=== PATIENT | female | born 1980 | race Caucasian/White ===

== ENCOUNTER 2021-01-13 11:11 | Emergency (ER) | payer OTHER, SELFPAY ==
--- NOTE | ~2021-01-13 | US_ITS ---
EXAMINATION: US OB <= 14 weeks fetus DATE: 01/13/2021 12:28 INDICATION: Vaginal bleeding during first trimester TECHNIQUE: Real-time pelvic transabdominal and transvaginal ultrasound was performed. COMPARISON: None. FINDINGS: The uterus measures 15.3 x 9.3 x 7.6 cm. There is an intrauterine gestational sac. There i s a 1.5 cm hypoechoic area adjacent to the gestational sac. heart motion is identified measurin g 175 beats per minute (bpm) by M-mode Doppler. The crown rump length measures 5.1 cm , which c orrelates with an estimated gestational age of 11 weeks and 6 day(s) (+/-) 7 day(s). The left ovary is not visualized however no left adnexal abnormality is seen. The right ovary measure s 1.9 x 1.7 x 2.2 cm. There is normal vascular flow in the right ovary. There is no free fluid in the pelvis. IMPRESSION: 1. Live intrauterine with an estimated gestational age of 11 weeks and 6 day(s) (+/-) 7 day (s) and an estimated delivery date of 07/29/2021. 2. Small subchronic hematoma. Reviewed, dictated and finalized at location A. IMPRESSION: 1. Live intrauterine with an estimated gestational age of 11 weeks an d 6 day(s) (+/-) 7 day(s) and an estimated delivery date of 07/29/2021. 2. Small subchronic hematoma.
[2021-01-13 11:15] VITALS: BP 106/67; PULSE 90; RESP 20; TEMP 36.8; O2SAT 99
[2021-01-13] MEDS: SODIUM CHLORIDE 0.9% IV 1,000 ML 999 ML IV CONT (12:11)
[2021-01-13 12:15] LABS: Basophils Absolute Auto 0.1 K/mm3 (0.0-0.1); Basophils Percent Auto 0.7 % (0.2-1.2); Eosinophils Absolute Auto 0.3 K/mm3 (0-0.3); Eosinophils Percent Auto 2.1 % (0-4.4); Hematocrit 36.2 % (37.0-47.0); Hemoglobin 12.2 g/dL (12.0-15.0); Immature Granulocyte Absolute 0.11 K/mm3 (0.00-0.031); Immature Granulocyte Percent A 0.8 % (0-0.5); Lymphocytes Absolute Auto 3.41 K/mm3 (0.9-3.2); Mean Corpuscular HGB Conc 33.7 g/dl (32-36); Mean Corpuscular Hemoglobin 31.4 pg (26-34); Mean Corpuscular Volume 93.3 fl (80-100); Mean Platelet Volume 8.4 fl (7.4-10.4); Monocytes Absolute Auto 0.9 K/mm3 (0.1-0.6); Monocytes Percent Auto 6.7 % (2.6-8.5); Neutrophils Absolute Auto 8.4 K/mm3 (1.3-6.7); Neutrophils Percent Auto 63.7 % (45.5-73.1); Platelet Count Result 348 k/mm3 (150-375); Red Blood Count 3.88 M/mm3 (4.2-5.4); White Blood Count 13.1 K/mm3 (4.5-10.0)
[2021-01-13 12:25] LABS: Alanine Aminotransferase 17 U/L (4-35); Albumin Level 3.8 g/dL (3.5-5.1); Alkaline Phosphatase 54 U/L (38-126); Anion Gap 9 mmol/L (8-16); Aspartate Amino Transferase 29 U/L (14-36); Bilirubin,Total 0.3 mg/dL (0.2-1.3); Blood Urea Nitrogen 10 mg/dL (7-17); Calcium 9.1 mg/dL (8.4-10.2); Carbon Dioxide 23 mmol/L (22-30); Chloride 104 mmol/L (98-107); Estimated CRCL calculation 81 ml/min; Estimated Glomerular Filt Rate > 60; Glucose 107 mg/dL (65-105); Potassium 3.3 mmol/L (3.4-5.0); Sodium 136 mmol/L (137-145)
[2021-01-13 13:22] LABS: Add Urine Microscopic? YES; Appearance Urine Clear (Clear); Bilirubin Urine Negative (Negative); Blood Urine 1+ (Negative); Color Urine Straw (Yellow); Glucose Urine UA 2+ mg/dL (Negative); Ketones Urine Negative (Negative); Leukocyte Esterase Ur Negative LEU/UL (Negative); Nitrate Urine Negative (Negative); Protein Urine Negative (Negative); RBC Urine 0-2 /hpf (0-2); Specific Grav Ur 1.011 (1.001-1.035); Squamous Epithelial Cell Urine Rare /hpf (Few); Urobilinogen Urine Negative mg/dL (<2.0); WBC Urine 0-3 /hpf
--- NOTE | 2021-01-13 13:29 | ED.GENADULT ---
HPI - General Adult General Chief complaint: Vaginal Bleeding Stated complaint: 12 weeks , spotting Time Seen by Provider: 01/13/21 11:50 Source: patient, family, RN notes reviewed and old records reviewed Mode of arrival: ambulatory Limitations: no limitations History of Present Illness HPI narrative: Patient is a 40-year-old female who presents with spotting after noting that she was doing a lot of walking yesterday patient has some low back cramping as well patient is followed by Dr. Henning and is currently 12 weeks per ultrasound. Patient notes minimal bleeding denies any cramping at this time. Patient is G7, P4. Patient denies any other complaints does not appear distressed upon arrival Related Data Allergies Allergy/AdvReac Type Severity Reaction Status Date / Time No Known Allergies Allergy Verified 01/13/21 11:46 Review of Systems Review of Systems: All systems reviewed & are unremarkable except as noted in HPI and below PMFSH Surgical History Surgical History (Updated 01/13/21 @ 13:31 by Elver Aguilra PA-C) H/O section Social History Social History (Updated 01/13/21 @ 13:31 by Elver Aguilar PA-C) Smoking status: Never smoker Exam Narrative: Exam Narrative: GENERAL: Well-appearing, well-nourished, and in no acute distress. HEAD: Normocephalic, atraumatic. EYES: PERRLA and EOMI. ENT: Nares clear, no rhinorrhea or epistaxis. Mucous membranes moist. CHEST: Clear to auscultation. No respiratory distress. No wheezes rales or rhonchi HEART: Regular rate and rhythm. No murmur heard. Normal peripheral pulses. ABDOMEN: Soft, nontender, nondistended. EXTREMITIES: Normal range of motion. No edema. SKIN: Warm, dry, no rash. NEURO: No focal deficits. Alert and oriented x3. Cranial nerves II through XII grossl PSYCH: Normal mood and affect. Course Course Emergency Course: Patient evaluated the emergency department no high risk changes in her evaluation will be advised to follow with her stock turner this week patient made aware of the small subchorionic hematoma patient at this time hemodynamically stable O+ blood type no pain. Patient agrees with this plan and will follow up on an outpatient basis Vital Signs Vital signs: Vital Signs Temperature 98.2 F 01/13/21 11:15 Pulse Rate 90 01/13/21 11:15 Respiratory Rate 20 01/13/21 11:15 Blood Pressure 106/67 01/13/21 11:15 Pulse Oximetry 99 01/13/21 11:15 Temperature 98.2 F 01/13/21 11:15 Pulse Rate 90 01/13/21 11:15 Respiratory Rate 20 01/13/21 11:15 Blood Pressure 106/67 01/13/21 11:15 Pulse Oximetry 99 01/13/21 11:15 Medical Decision Making MDM Narrative Medical decision making narrative: Patient presented with cramping and spotting no distress hemodynamically stable afebrile nontoxic-appearing no distress felt appropriate for outpatient reevaluation Vital Signs Vital Signs: Vital Signs Temperature 98.2 F 01/13/21 11:15 Pulse Rate 90 01/13/21 11:15 Respiratory Rate 20 01/13/21 11:15 Blood Pressure 106/67 01/13/21 11:15 Pulse Oximetry 99 01/13/21 11:15 Temperature 98.2 F 01/13/21 11:15 Pulse Rate 90 01/13/21 11:15 Respiratory Rate 01/13/21 11:15 Blood Pressure 106/67 01/13/21 11:15 Pulse Oximetry 99 01/13/21 11:15 Lab Data Result diagrams: 01/13/21 12:08 01/13/21 12:08 Labs: Lab Results 01/13/21 01/13/21 01/13/21 Range/Units 12:08 12:08 12:08 WBC 13.1 H (4.5-10.0) K/mm3 RBC 3.88 L (4.2-5.4) M/mm3 Hgb 12.2 (12.0-15.0) g/dL Hct 36.2 L (37.0-47.0) % MCV 93.3 (80-100) fl MCH 31.4 (26-34) pg MCHC 33.7 (32-36) g/dl RDW 12.0 (11.5-14.5) % Plt Count 348 (150-375) k/mm3 MPV 8.4 (7.4-10.4) fl Immature Gran % (Auto) 0.8 H (0-0.5) % Neut % (Auto) 63.7 (45.5-73.1) % Lymph % (Auto) 26.0 (18.3-44.2) % [place] % (Auto) 6.7 (2.6-8.5) % Eos % (Auto)
== END 2021-01-13 13:47 | disposition home or self-care (01) ==
PROVIDERS: Emergency Medicine Emergency Medical Services; Emergency Provider Emergency Medicine
DX: O46.91 Antepartum hemorrhage, unspecified, first trimester (principal); Z3A.11 11 weeks gestation of pregnancy; O36.8910 Maternal care for other specified fetal problems, first trimester, not applicable or unspecified
CPT/HCPCS: 36415; 76801; 80053; 81001; 84702; 85025; 85461; 96360; 99284; J7030

== ENCOUNTER 2021-04-24 14:14 | Emergency (ER) | payer OTHER, SELFPAY ==
[2021-04-24] VITALS (51 sets, daily range): BP systolic 82–107; BP diastolic 46–71; PULSE 74–108; RESP 16–37; TEMP 36.4–38; O2SAT 95–100
--- NOTE | ~2021-04-24 | XR_ITS ---
EXAMINATION: XR chest 1V portable EXAM DATE: 04/24/2021 15:27 INDICATION: COVID Positive , SOB, 6 months . Shielded. TECHNIQUE: Portable AP frontal chest x-ray was obtained. There is no prior study for comparison. FINDINGS: There is bilateral ill-defined mid and lower lung zone acute airspace disease, probably COV ID pneumonia given history provided. Upper lung zones are clear. No pneumothorax or pleural effusion. Cardiomediastinal silhouette is normal. IMPRESSION: Small to moderate amount of bilateral acute airspace disease, probably COVID pneumonia. Reviewed, dictated and finalized at location A. IMPRESSION: Small to moderate amount of bilateral acute airspace disease, prob ably COVID pneumonia.
--- NOTE | ~2021-04-24 | CT_ITS ---
EXAMINATION: CTA chest PE protocol DATE: 04/24/2021 17:45 INDICATION: Shortness of breath, tachypnea TECHNIQUE: Computed tomography angiography (CTA) of the chest was performed with 100 mL Omnipaque-350 intravenous contrast timed to evaluate the pulmonary arteries. Coronal maximum intensity projection 3D-reconstructions were created by the technologist. Automated exposure control and iterative reconst ruction technique were employed. Exam dose: 219.92 mGy-cm total exam DLP. COMPARISON: 04/24/2021 portable AP chest FINDINGS: There is technically adequate contrast enhancement of the pulmonary arteries and diagnostic purposes and no evidence of pulmonary embolism. No thoracic aortic aneurysm or dissection. Normal heart size. No pericardial or pleural effusion. There are primarily dependent areas of prominent consolidation in the lower lobes and lingula. Consid er aspiration pneumonitis, bilateral pneumonia, Covid pneumonia. No tracheal bronchial occlusion is e vident. Mild hilar and mediastinal lymph node prominence, likely reactive. Included skeletal structures are unremarkable. IMPRESSION: Bilateral lower lobe and lingula predominantly dependent consolidation No evidence of pulmonary embolism Reviewed, dictated and finalized at Location A. Reviewed, dictated and finalized at location B. IMPRESSION: Bilateral lower lobe and lingula predominantly dependent consolida tion No evidence of pulmonary embolism
--- NOTE | 2021-04-24 14:37 | ECG_ITS ---
Measurements Intervals [place] Rate: 101 P: 50 FL: 126 QRS: 59 QRSD: 93 T: 24 QT: 339 QTc: 439 Interpretive Statements SINUS TACHYCARDIA BASELINE ARTIFACT- II, III, AVR, AVL, AVF, V1-V6 BORDERLINE ECG Electronically Signed On 04-24-2021 14:49:31 CDT by Lencho Romero D.O.
[2021-04-24 15:11] LABS: Hematocrit 35.3 % (37.0-47.0); Hemoglobin 11.8 g/dL (12.0-15.0); Mean Corpuscular HGB Conc 33.4 g/dl (32-36); Mean Corpuscular Hemoglobin 28.7 pg (26-34); Mean Corpuscular Volume 85.9 fl (80-100); Mean Platelet Volume 9.1 fl (7.4-10.4); Platelet Count Result 398 k/mm3 (150-375); Red Blood Count 4.11 M/mm3 (4.2-5.4); Red Cell Distribution Width 13.3 % (11.5-14.5); White Blood Count 10.8 K/mm3 (4.5-10.0)
[2021-04-24 15:22] LABS: D Dimer 2.49 ug/mL (<0.48)
[2021-04-24 15:43] LABS: Band Neutrophils Percent 8 % (0-6); Lymphocytes Absolute Manual 1.51 K/mm3 (1.1-4.5); Monocytes Absolute Manual 0.86 K/mm3 (0.1-0.90); Monocytes Percent Manual 8 % (3-9); Neutrophils Absolute Manual 8.42 K/mm3 (1.7-7.2); Neutrophils Percent Manual 70 % (46-73); Platelet Estimate Adequate (Adequate); Total Cells Counted 100
[2021-04-24 17:13] LABS: Anion Gap 9 mmol/L (8-16); Blood Urea Nitrogen 3 mg/dL (7-17); Calcium 8.7 mg/dL (8.4-10.2); Carbon Dioxide 22 mmol/L (22-30); Chloride 103 mmol/L (98-107); Estimated CRCL calculation 91 ml/min; Estimated Glomerular Filt Rate > 60; Glucose 98 mg/dL (65-110); Potassium 3.5 mmol/L (3.4-5.0); Sodium 134 mmol/L (137-145)
[2021-04-24] MEDS: DEXAMETHASONE SOD PHOS INJ 4 MG/ML VIAL 10 MG IV PUSH (17:40)
[2021-04-24] MEDS: SODIUM CHLORIDE 0.9% IV 1,000 ML 999 ML IV CONT (17:55)
--- NOTE | 2021-04-24 19:11 | ED.GENADULT ---
HPI - General Adult General Chief complaint: Shortness of Breath/Dyspnea <Robert Delong PA-C - Last Filed: 04/24/21 22:09> Stated complaint: diff breathing <Robert Delong PA-C - Last Filed: 04/24/21 22:09> Time Seen by Provider: 04/24/21 14:38 <Robert Delong PA-C - Last Filed: 04/24/21 22:09> Source: patient <Robert Delong PA-C - Last Filed: 04/24/21 22:09> Mode of arrival: ambulatory <Robert Delong PA-C - Last Filed: 04/24/21 22:09> Limitations: no limitations <YAZ Barrera Last Filed: 04/24/21 22:09> History of Present Illness HPI narrative: Patient with history of Covid symptoms as 04-07-21 and tested positive for Covid on 04-17-21 presents with chief complaint of increasing shortness of breath. Patient reports that she also has cough that is nonproductive. Patient reports that she has had low-grade fevers of 100.8. Patient is 26 weeks . Patient's URGENT CARE TECHNICIAN is Dr. Barahona. Patient denies history of asthma or COPD. <Robert Delong PA-C - Last Filed: 04/24/21 22:09> Related Data Home medications: Home Medications Medication Instructions Recorded Confirmed No Home Medications 04/24/21 04/24/21 <Robert Delong PA-C - Last Filed: 04/24/21 22:09> Allergies/adverse reactions: Allergies Allergy/AdvReac Type Severity Reaction Status Date / Time No Known Allergies Allergy Verified 04/24/21 14:34 <Robert Delong PA-C - Last Filed: 04/24/21 22:09> Review of Systems Review of Systems: CONSTITUTIONAL: Reports fever, chills, denies sweats. EYES: Denies visual changes, redness, or discharge. ENT: Denies rhinorrhea, congestion, sore throat, or otalgia. CARDIOVASCULAR: Denies chest pain, palpitations, or edema. RESPIRATORY: Reports cough and dyspnea. GASTROINTESTINAL: Denies abdominal pain, nausea, vomiting, or diarrhea. GENITOURINARY: Denies dysuria or hematuria. SKIN: Denies rash or itching. MUSCULOSKELETAL: Denies back pain, joint pain, or myalgia. NEUROLOGIC: Denies headache, numbness, dizziness, or weakness. PSYCHIATRIC: Denies anxiety or depression. <Robert Delong PA-C - Last Filed: 04/24/21 22:09> [facility] Surgical History Surgical History: Surgical History (Updated 01/13/21 @ 13:31 by Elver Aguilar PA-C) H/O section <Robert Delong PA-C - Last Filed: 04/24/21 22:09> Social History Social History: Social History (Updated 01/13/21 @ 13:31 by Elver Aguilar PA-C) Smoking status: Never smoker <Robert Delong PA-C - Last Filed: 04/24/21 22:09> Exam Narrative: GENERAL: Well-appearing, well-nourished, and in no acute distress. HEAD: Normocephalic, atraumatic. EYES: PERRLA and EOMI. CHEST: Clear to auscultation. Patient tachypneic. No wheezes rales or rhonchi. Dry cough noted during exam HEART: Regular rate and rhythm. No murmur heard. Normal peripheral pulses. EXTREMITIES: Normal range of motion. No edema. SKIN: Warm, dry, no rash. NEURO: No focal deficits. Alert and oriented x3. PSYCH: Normal mood and affect. <Robert Delong PA-C - Last Filed: 04/24/21 22:09> Course Vital Signs Vital signs: Vital Signs Temperature 36.4 C 04/24/21 14:24 Pulse Rate 107 H 04/24/21 14:24 Respiratory Rate 20 04/24/21 14:24 Blood Pressure 82/46 L 04/24/21 14:24 Pulse Oximetry 97 04/24/21 14:24 Temperature 38.0 C H 04/24/21 14:56 Pulse Rate 82 04/25/21 00:38 Respiratory Rate 23 H 04/25/21 00:38 Blood Pressure 97/64 L 04/25/21 00:15 Pulse Oximetry 96 04/25/21 00:38 <Robert Delong PA-C - Last Filed: 04/24/21 22:09> Transfer Transfered to: [facility]) <Robert Delong PA-C - Last Filed: 04/24/21 22:09> Transportation: ALS <Robert Delong PA-C - Last Filed: 04/24/21 22:09> Transfer rationale: Higher level of care OB w/ COVID care <Robert Delong PA-C - Last Filed: 04/24/21 22:09> Accepting physician: Dr Jose Flores/
--- NOTE | 2021-04-24 22:28 | PC.NURSE ---
Report given to [facility] at this time. Report given to IVANA Bruno
[2021-04-25 00:01] VITALS: PULSE 78; RESP 22; O2SAT 98
[2021-04-25 00:15] VITALS: BP 97/64; PULSE 85; O2SAT 99
[2021-04-25 00:16] VITALS: PULSE 80; O2SAT 98
[2021-04-25 00:38] VITALS: PULSE 82; RESP 23; O2SAT 96
== END 2021-04-25 01:04 | disposition short-term general hospital (02) ==
PROVIDERS: Physician Assistant; Emergency Provider Emergency Medicine
DX: O98.512 Other viral diseases complicating pregnancy, second trimester (principal); U07.1 COVID-19; O99.512 Diseases of the respiratory system complicating pregnancy, second trimester; J98.8 Other specified respiratory disorders; Z3A.26 26 weeks gestation of pregnancy
CPT/HCPCS: 36415; 71045; 71275; 80048; 85025; 85380; 93005; 96361; 96374; 99285; J1100; J7030; Q9967

== ENCOUNTER 2021-06-14 09:25 | Observation (INO) | payer OTHER, SELFPAY ==
--- NOTE | ~2021-06-14 | US_ITS ---
EXAMINATION: US OB follow up w BPP DATE: 06/14/2021 12:15 INDICATION: cardiac decelerations during third trimester . Assess weight/growth, amniotic fluid index and biophysical profile. TECHNIQUE: Real-time pelvic ultrasound was performed. The interpreting radiologist was not present fo r the study. COMPARISON: None. FINDINGS: There is a single living fetus in vertex presentation. The placenta is posterior fundal. heart rate is 135 beats per minute (bpm). Normal amniotic fluid index of 15.2 cm (5th%-95%: 8.3-24.5 cm at 33 weeks estimated gestational age) The following biometric data were obtained: BPD: 8.2 cm -> 32 weeks 6 days Head circumference: 29.7 cm -> 32 weeks 6 days Abdominal circumference: 29.4 cm -> 33 weeks 3 days Femur length: 6.4 cm -> 33 weeks 0 days These measurements are concordant. Head circumference to abdominal circumference ratio: 1.01 (normal range 0.96-1.11). Estimated weight: 2135 g (+/-) 320 g, 4 lbs 11 oz (+/-) 11oz Biophysical profile performed by the technologist: breathing (30 sec sustained breathing in 30 minutes): 2 out of 2 movement (3 gross body movements in 30 minutes): 2 out of 2 tone (one episode of zezxlfi-qwabdmjmy-wsqpjuh limb movement): 2 out of 2 Amniotic fluid pocket (2 cm): 2 out of 2 Total score: 8 out of 8 IMPRESSION: 1. Single living fetus in vertex presentation with heart rate of 135 bpm. 2. Biophysical profile 8 out of 8. 3. Normal amniotic fluid index of 15.2 cm. 4. Estimated weight is 27th percentile by Hadlock criteria when 07/28/2021 is used as the estima gael date of delivery (DUSTIN). Please correlate with clinical information or earlier ultrasounds for mos t accurate DUSTIN. Reviewed, dictated and finalized at location A. BASE OPERATOR IMPRESSION: 1. Single living fetus in vertex presentation with heart rate of 135 bpm. 2. Biophysical profile 8 out of 8. 3. Normal amniotic fluid index of 15.2 cm. 4. Estimated weight is 27th percentile by Hadlock criteria when 07/28/2021 is used as the estimated date of delivery (DUSTIN). Please correlate with clinica l information or earlier ultrasounds for most accurate DUSTIN.
[2021-06-14 10:00] VITALS: BMI 29.0
--- NOTE | 2021-06-14 10:00 | OBADM ---
This patient, Susi Best, admitted to the OB room 116 for observation for continued monitoring due to FHR decelerations. Patient/family oriented to hospital policies and general routines including ID bracelet, bed and alarms, visiting hours, pain management, procedures, bathroom and other care routines, personal items, smoking policy, room service/diet, and visiting hours. Patient/Family are encouraged to report perceived risks to care and to ask questions if they do not understand what they are told or what they should do.
[2021-06-14] MEDS: LACTATED RINGERS 1,000 ML 999 ML IV CONT (10:07)
[2021-06-14 10:58] VITALS: BP 116/69; PULSE 88
[2021-06-14 11:01] VITALS: BP 109/73; PULSE 86
[2021-06-14 12:23] VITALS: BP 110/67; PULSE 79
[2021-06-14 13:00] VITALS: BP 105/68; PULSE 98
--- NOTE | 2021-06-14 13:23 | PC.NURSE ---
Called Dr. Christy. She has seen the U/S report. pulled up OBIX tracing from office and reviewed. Order received for discharge.
--- NOTE | 2021-06-14 14:00 | PC.NURSE ---
Dr. Christy also requested pt have a repeat NST on Friday- scheduled.
--- NOTE | 2021-06-18 07:15 | PM.OBTRLD ---
OB - Triage/Final Diagnosis Visit Information Comments/Additional reasons for admission: I have assessed the risk for this patient, Susichaitanya Best, and determined that she would benefit from observation care. Final Diagnosis (1) Non-reactive NST (non-stress test): Code(s): O28.8 - Other abnormal findings on screening of mother Status: Acute
== END 2021-06-14 14:03 | disposition home or self-care (01) ==
LOC: ANHOBPP 13:48 → ANHLDR 14:03
PROVIDERS: Admitting Provider Obstetrics & Gynecology; Visit Provider Obstetrics & Gynecology
DX: O36.8330 Maternal care for abnormalities of the fetal heart rate or rhythm, third trimester, not applicable or unspecified (principal); Z3A.33 33 weeks gestation of pregnancy
CPT/HCPCS: 76816; 76819; 96360; G0378; G0379; J7120

== ENCOUNTER 2021-06-29 08:55 | Observation (INO) | payer OTHER, SELFPAY ==
--- NOTE | ~2021-06-29 | US_ITS ---
EXAMINATION: US OB limited w BPP DATE: 06/29/2021 11:13 INDICATION: heart decelerations during third trimester TECHNIQUE: Real-time pelvic ultrasound was performed. The interpreting radiologist was not present fo r the study. COMPARISON: None. FINDINGS: There is a single living fetus in vertex presentation. The placenta is fundal. heart rate is 15 7 beats per minute (bpm). The amniotic fluid index is 8.0 cm which is low normal. Biophysical profile performed by the technologist: breathing (30 sec sustained breathing in 30 minutes): 2 out of 2 movement (3 gross body movements in 30 minutes): 2 out of 2 tone (one episode of sjnustp-pjgdbzyvx-ysxfbrx limb movement): 2 out of 2 Amniotic fluid pocket (2 cm): 2 out of 2 Total score: 8 out of 8 IMPRESSION: 1. Single living fetus in vertex presentation. 2. Biophysical profile 8 out of 8. 3. Amniotic fluid index in the low normal range. Reviewed, dictated and finalized at location A. ESCENT MEDICINE SPECIALIST
[2021-06-29 09:54] VITALS: BP 113/71; PULSE 93
[2021-06-29 09:56] VITALS: BMI 28.9
--- NOTE | 2021-06-29 09:57 | OBADM ---
This patient, Susi Best, admitted to the OB room 116 for observation for extended monitoring due to FHR decelerations. Patient/family oriented to hospital policies and general routines including ID bracelet, bed and alarms, visiting hours, pain management, procedures, bathroom and other care routines, personal items, smoking policy, room service/diet, and visiting hours. Patient/Family are encouraged to report perceived risks to care and to ask questions if they do not understand what they are told or what they should do.
[2021-06-29 10:00] VITALS: BP 114/79; PULSE 100
[2021-06-29 10:52] VITALS: BP 110/68; PULSE 94
[2021-06-29] MEDS: BETAMETHASONE SOD PHOS/ACETATE 30 MG/5 ML VIAL 12 MG IM (11:20)
[2021-06-29 12:01] VITALS: BP 108/70; PULSE 96
--- NOTE | 2021-07-04 11:56 | PM.OBTRLD ---
OB - Triage/Final Diagnosis Visit Information Reason for evaluation: threatened labor Comments/Additional reasons for admission: I have assessed the risk for this patient, Susi Best, and determined that she would benefit from observation care.
== END 2021-06-29 13:44 | disposition home or self-care (01) ==
PROVIDERS: Admitting Provider Obstetrics & Gynecology; Visit Provider Obstetrics & Gynecology
DX: O47.03 False labor before 37 completed weeks of gestation, third trimester (principal); Z3A.35 35 weeks gestation of pregnancy
CPT/HCPCS: 76815; 76819; 96372; G0378; G0379; J0702

== ENCOUNTER 2021-07-04 08:34 | Inpatient (IN) | payer OTHER, SELFPAY ==
[2021-07-04] VITALS (64 sets, daily range): BP systolic 94–120; BP diastolic 53–84; PULSE 56–157; RESP 16–20; TEMP 36.4–37; O2SAT 79–100; BMI 29.1
[2021-07-04] MEDS: LACTATED RINGERS 1,000 ML 999 ML IV CONT ×2 (10:00→10:50)
--- NOTE | 2021-07-04 10:02 | WPDANESEPPF ---
Anes - Initial Pre Proc Eval Procedure: Operation Date: 07/23/21 07:30 Proposed Procedures p Section - Yuliya Christy MD Date/Time: 07/04/21 10:02 Surgeon: Yuliya Christy MD Pre Op Diagnosis: C Section Patient Data Age: 40 Gender: F Height: Weight: Allergies Allergy/AdvReac Type Severity Reaction Status Date / Time No Known Allergies Allergy Verified 04/24/21 14:34 Home Medications Medication Instructions Recorded Confirmed Type ferrous sulfate 162.5 mg PO DAILY 06/14/21 06/29/21 History Flintstones Gummies 2 tablet PO DAILY 06/23/21 06/29/21 History Patient hx anesthesia problems: none Family hx anesthesia problems: none Results Review: All pre-operative results and documents have been reviewed as part of the pre-operative evaluation. [facility] Surgical History Surgical History H/O section Family History Family History Father Heart attack Throat cancer Lung cancer Social History Social History Smoking status: Never smoker Substance use: never Spiritual care concerns: No Anes - Eval Final PreProcedure Day of Procedure 07/04/21 10:02 Patient weight: overweight Heart: regular rate and rhythm Lungs: clear to auscultation Airway: Mallampati scale class II Neurological: alert and oriented Last oral intake: 2 hours ASA classification: II Emergent: no Anesthetic plan: proceed Anesthesia type and monitoring: regional spinal Results Review: All pre-operative results and documents have been reviewed as part of the pre-operative evaluation. Informed Consent: The patient's anesthetic plan and its attendant risks and benefits were discussed with the patient/family/POA. Questions were solicited and answers provided to the satisfaction of the patient/family/POA.
--- NOTE | 2021-07-04 10:12 | LDADM ---
This patient, Susi Best, was admitted to Labor/Delivery/Recovery 119 on 07/04/21 at 08:34 for repeat section. Plans for surgery/ and pain management were discussed with patient. Patient/family oriented to hospital policies and general routines including ID bracelet, bed and alarms, visiting hours, pain management, procedures, bathroom and other care routines, personal items, smoking policy, room service/diet and guest tray routines, security routines, and visiting hours. Patient/Family are encouraged to report perceived risks to care and to ask questions if they do not understand what they are told or what they should do. See OBIX for further documentation.
[2021-07-04 10:13] LABS: Basophils Absolute Auto 0.1 K/mm3 (0.0-0.1); Basophils Percent Auto 0.5 % (0.2-1.2); Eosinophils Absolute Auto 0.1 K/mm3 (0-0.3); Hematocrit 36.5 % (37.0-47.0); Hemoglobin 12.4 g/dL (12.0-15.0); Immature Granulocyte Absolute 0.37 K/mm3 (0.00-0.031); Immature Granulocyte Percent A 2.7 % (0-0.5); Lymphocytes Absolute Auto 3.17 K/mm3 (0.9-3.2); Lymphocytes Percent Auto 23.4 % (18.3-44.2); Mean Corpuscular Hemoglobin 28.6 pg (26-34); Mean Corpuscular Volume 84.1 fl (80-100); Mean Platelet Volume 9.4 fl (7.4-10.4); Monocytes Percent Auto 7.4 % (2.6-8.5); Neutrophils Absolute Auto 8.8 K/mm3 (1.3-6.7); Platelet Count Result 329 k/mm3 (150-375); Red Blood Count 4.34 M/mm3 (4.2-5.4); Red Cell Distribution Width 16.2 % (11.5-14.5); White Blood Count 13.5 K/mm3 (4.5-10.0)
--- NOTE | 2021-07-04 11:09 | P.HP_ITS ---
H&P: HPI History of Present Illness Date/Time: 07/04/21 11:05 Susi is a 40yo G 5 P4004 @ 36.4wks who has been followed for AMA. Baby has had decelerations for the last 3 weeks; had prolonged monitoring and is now s/p steroids. Had decels again on NST today. Has mildly low fluid at 8cm.He's moving good. Irregular ctx. No vb or lof. is complicated by: - AMA - decels w/ prolonged monitoring x2; s/p ANCS x2 - h/o c/s x1 for repeat - subchorionic hematoma - Varicella, parvo, and rubella non-immune - elevated glucola; normal 3 hour Chief Complaint: NST Review of Systems Review of Systems: All systems reviewed & are unremarkable except as noted in HPI and below (HPI) [facility] Surgical History Surgical History H/O section Family History Family History Father Heart attack Throat cancer Lung cancer Social History Social History Years smoked: 21 Smoking status: Former smoker Additional smoking assessment comments: Pt smokes socially with drinking Substance use: never Spiritual care concerns: No Meds Home Medications and Allergies Home Medications Medication Instructions Recorded Confirmed Type ferrous sulfate 162.5 mg PO DAILY 06/14/21 07/04/21 History Flintstones Gummies 2 tablet PO DAILY 06/23/21 07/04/21 History Allergies Allergy/AdvReac Type Severity Reaction Status Date / Time No Known Allergies Allergy Verified 04/24/21 14:34 Vital Signs Vital Signs - 24 hr 07/04/21 10:27 Pulse Rate 98 Blood Pressure 112/55 L Exam Const: General: cooperative, healthy appearing, comfortable and no acute distress Resp: Effort & Inspection: normal respiratory effort Cardio: Rate: regular rate GI: Inspection: normal to inspection and non-distended GI Palp: No abdo antoine tenderness and Yes Soft to palpation : Other: FHTs: 145/mod tino/ + accels/ multiple variable decels - cat2 TOCO; irregular ctx Membranes: intact presentation: cephalic GBS negative Skin: General skin exam: normal color Neuro: General: patient oriented x3 Extrem: General: normal to inspection Psych: Appearance: grossly normal Affect: normal affect Attitude: cooperative H&P: Results Labs Labs: Short CBC 07/04/21 Range/Units 09:58 WBC 13.5 H (4.5-10.0) K/mm3 Hgb 12.4 (12.0-15.0) g/dL Hct 36.5 L (37.0-47.0) % Plt Count 329 (150-375) k/mm3 Assessment and Plan Assessment and plan (1) History of section: Code(s): Z98.891 - History of uterine scar from previous surgery Status: Acute (2) heart deceleration: Status: Acute Additional Plan - For repeat - risks and benefits explained in detail
[2021-07-04] MEDS: ceFAZolin 2 GM/D5W 50 ML 2 GM/50 ML BAG IVPB (11:10)
--- NOTE | 2021-07-04 11:10 | WPDHPUPDATE1 ---
History and Physical Update Update Date/Time: 07/04/21 11:10 History and Physical has been reviewed, including an updated exam of the patient. There are NO changes in the patient's condition. Risks, benefits, and alternatives have been discussed and questions answered. Patient agrees to proceed with procedure.
--- NOTE | 2021-07-04 12:25 | SUR.PHASEI ---
200 ml remains of 1000 ml LR with 40 units Pitocin.
--- NOTE | 2021-07-04 12:29 | P.PCNOB_ITS ---
OB - Delivery Note Procedure Delivery date: 07/04/21 Procedure: Procedures Operation Date: 07/04/21 11:00 Actual Procedure Side Surgeon p Section Not Applicable Yuliya Christy MD events: Low Fluid Volume in Amniotic Sac (recurrent decelerations on testing) Route of delivery: (repeat) Quantitative Blood Loss (ml): 435 Anesthesia type: Spinal Disposition: floor [place] Baby Date of : 07/04/21 Time of : 11:46 Weeks of gestation at delivery: 36 (.4) gender: Male Weight (pounds): 5 Weight (ounces): 15 presentation: vertex position: Right Occiput Transverse Placenta delivery description: Expressed cord vessel description: 3 Vessels score one minute: 9 score five minutes: 9 Narrative: She was counseled on all risks and benefits in detail. She was taken to the operating room where spinal anesthesia was placed. She was then prepped and draped in the normal sterile fashion. She received 2g Ancef and a time out was performed. A Pfannenstiel incision was made in the skin and carried down to the underlying fascia. The fascia was nicked on either side of the midline and the fascial incision was extended laterally and superiorly. The fascia was then elevated and the underlying rectus muscles were dissected off the fascia, superiorly and inferiorly. The rectus muscles were then in the midline and the peritoneum was entered sharply. Filmy adhesions from the anterior uterus to bladder were taken down. A thick uterine adhesion from the mid, anterior uterus to the anterior abdominal wall was doubly ligated and bovied free. Once adequate exposure was obtained, a Rich and bladder blade was placed within the abdomen. A bladder flap was created. A low transverse incision was made on the lower uterine segment and clear fluid was noted. The occiput was brought to the hysterotomy and the head was delivered. The shoulder and body then followed without complications. The infant had spontaneous cry and the mouth and nose were bulb suctioned. The cord was clamped and cut and the infant was handed off to the awaiting pediatric nurse. A segment of the cord was collected for cord gases. The remaining cord blood was collected for typing. With pitocin infusing, the placenta delivered with gentle traction on the cord without complications. The uterus was then cleared out of all clots and debris using a clean, moist lap. The hysterotomy was then repaired in a running fashion using 0 Vicryl. A second layer imbricating suture was then made using 0 Vicryl. The hysterotomy was found to be hemostatic and good uterine tone was noted. The bilateral adnexa were examined and found to be normal. The pelvis was cleared of all clots and fluid. The retractors were removed from the abdomen. The peritoneum, muscle, and fascia were examined and made hemostatic with bovie cautery. The fascia was then repaired using a 0 Vicryl suture in a running fashion. The subcutaneous tissue was then irrigated and made hemostatic with bovie cautery. The subcutaneous tissue was then reapproximated using 2-0 Vicryl. The skin was then closed using 4-0 Monocryl in a running subcuticular fashion. Sponge, lap, needle and instrument counts were correct at the end of the procedure x2. The patient tolerated the procedure well and was taken to recovery in a stable condition.
[2021-07-04] MEDS: OXYTOCIN 30 UNITS/NS 500 ML 30 UNITS/500 ML BAG 125 UNITS IV CONT (14:00)
--- NOTE | 2021-07-04 15:20 | OBPPTRN ---
Patient transferred to post room # 284 via stretcher accompanied by spouse and . PT and spouse both recipients of instructions and care. PT received instructions per one to one instructions, mom baby care guide and demonstrations this shift. No barriers to learning identified at this time and pt verbalized understanding of such care.. Oriented to unit, room, information board, rooming in, admission packet and plan of care per c section and pumping and bottle feeding.
--- NOTE | 2021-07-04 15:35 | PC.NURSE ---
Consult with pt., mother wishes to pump and bottle feed. Breast pump provided due to mother's wishes. Instructions given on breast pump care and usage, pumping schedule, nipple care, and collection and storage of breast milk. Encouraged vixv-av-rten, breast massage and manual expression to stimulate supply. Discussed colostrum vs milk supply and mother may not see more than a few drops the first few days, milk should transition in by day 3 and she may see more volume pumped per session. Mother states she is not ready to pump she will call out when ready.
[2021-07-04] MEDS: KETOROLAC 30 MG/ML VIAL (*BKC) IV PUSH ×2 (16:25→22:01)
[2021-07-04] MEDS: ONDANSETRON INJ 4 MG/2 ML VIAL IV PUSH (16:26)
[2021-07-04] MEDS: diphenhydrAMINE HCl INJ 50 MG/ML VIAL 25 MG IV PUSH (16:26)
[2021-07-04] MEDS: LANOLIN (LANSINOH) 7.5 GM CREAM 1 APPLIC TOPICAL (16:26)
[2021-07-04] MEDS: DEXTROSE 5%/0.45% SOD CHL 1,000 ML 125 ML IV CONT (18:53)
[2021-07-05] MEDS: HYDROcodone/acetaminophen (*CRX) 5-325 MG TABLET 1 TAB PO ×6 (03:23→22:08)
[2021-07-05] MEDS: IBUPROFEN 600 MG TABLET PO ×3 (03:24→19:08)
[2021-07-05 03:30] VITALS: BP 102/62; PULSE 86; RESP 18; TEMP 36.6; O2SAT 98
[2021-07-05 04:23] LABS: Basophils Absolute Auto 0.1 K/mm3 (0.0-0.1); Basophils Percent Auto 0.3 % (0.2-1.2); Eosinophils Absolute Auto 0.3 K/mm3 (0-0.3); Eosinophils Percent Auto 1.4 % (0-4.4); Hematocrit 33.1 % (37.0-47.0); Hemoglobin 10.9 g/dL (12.0-15.0); Immature Granulocyte Absolute 0.26 K/mm3 (0.00-0.031); Immature Granulocyte Percent A 1.3 % (0-0.5); Lymphocytes Absolute Auto 3.07 K/mm3 (0.9-3.2); Lymphocytes Percent Auto 15.9 % (18.3-44.2); Mean Corpuscular HGB Conc 32.9 g/dl (32-36); Mean Corpuscular Hemoglobin 27.8 pg (26-34); Mean Corpuscular Volume 84.4 fl (80-100); Mean Platelet Volume 9.5 fl (7.4-10.4); Monocytes Absolute Auto 1.4 K/mm3 (0.1-0.6); Monocytes Percent Auto 7.3 % (2.6-8.5); Neutrophils Absolute Auto 14.3 K/mm3 (1.3-6.7); Neutrophils Percent Auto 73.8 % (45.5-73.1); Platelet Count Result 313 k/mm3 (150-375); Red Blood Count 3.92 M/mm3 (4.2-5.4); Red Cell Distribution Width 16.2 % (11.5-14.5); White Blood Count 19.4 K/mm3 (4.5-10.0)
--- NOTE | 2021-07-05 06:14 | WPDANLDPN2 ---
Anes-Prog Note L&D Date/Time: 07/05/21 06:14 Comfortable throughout: section Neuraxial method: spinal Epidural/Spinal procedure site: clean & non-tender Neuro status: Neuro function grossly intact. Cardiovascular status: normal Respiratory status: normal Airway patency: baseline Mental status: baseline Post-Op hydration status: normal Vital Signs: Last Vital Signs Temp 97.8 F 07/05/21 03:30 Pulse 86 07/05/21 03:30 Resp 18 07/05/21 03:30 BP 102/62 07/05/21 03:30 Pulse Ox 98 07/05/21 03:30 Pain score (VAS): 0 I/O: Intake & Output 07/04/21 07/04/21 07/05/21 15:59 23:59 07:59 Intake Total 1150 500 400 Output Total 860 900 550 Balance 290 -400 -150 Post-procedural complaints: none Patient feedback: Patient satisfied with anesthetic care.
--- NOTE | 2021-07-05 06:15 | WPDANLDNPN2 ---
Anes-Prog Note L&D-Neuraxial Date/Time: 07/05/21 06:15 Neuraxial medications: intrathecal PF morphine Opiod-related complaints: pruritis mild, no treatment Patient feedback: Patient satisfied with post-operative pain management.
[2021-07-05] MEDS: MULTIVIT/MIN/PREN/FOL AC/IRON TABLET 1 TAB PO (08:01)
[2021-07-05] MEDS: DOCUSATE SODIUM 100 MG CAPSULE PO ×2 (08:02→16:02)
--- NOTE | 2021-07-05 08:30 | PC.NURSE ---
consult with pt., mother reports she has pumped a few times and is concerned with small volume pumping. Discussed colostrum vs milk supply and mother may not see more than a few drops the first few days, milk should transition in by day 3 and she may see more volume pumped per session. Instructions given on breast pump care and usage, pumping schedule, nipple care, and collection and storage of breast milk. Encouraged arat-my-iold, breast massage and manual expression to stimulate supply. Assessed patient for correct flange size, placement and draw. Patient verbalizes and demonstrates understanding of instructions.
[2021-07-05 10:52] LABS: Rapid Plasma Reagin Non-Reactive (NonReactive)
--- NOTE | 2021-07-05 12:00 | PM.OBPNVD ---
OB - PN: Subj Subjective Date/time seen: 07/05/21 11:58 POD#1 Susi reports doing well today. She states her pain is controlled. Her bleeding is light. She has tolerated regular diet. She has voided. She has passed gas. She has ambulated. She is breast feeding. She would like her son circumcised. She denies fever, chills, N/V, MEANS, vision changes, CP, SOB, dizziness or palpitations. OB - PN: Obj Data Labs CBC & Chem 7: 07/05/21 03:15 Labs: Laboratory Results - last 24 hr 07/04/21 07/04/21 07/05/21 09:58 09:59 03:15 WBC 13.5 H 19.4 H RBC 4.34 3.92 L Hgb 12.4 10.9 L Hct 36.5 L 33.1 L MCV 84.1 84.4 MCH 28.6 27.8 MCHC 34.0 32.9 RDW 16.2 H 16.2 H Plt Count 329 313 MPV 9.4 9.5 Immature Gran % (Auto) 2.7 H 1.3 H Neut % (Auto) 65.0 73.8 H Lymph % (Auto) 23.4 15.9 L [place] % (Auto) 7.4 7.3 Eos % (Auto) 1.0 1.4 Baso % (Auto) 0.5 0.3 Lymph # (Auto) 3.17 3.07 [place] # (Auto) 1.0 H 1.4 H Eos # (Auto) 0.1 0.3 Baso # (Auto) 0.1 0.1 Abs Immat Gran (auto) 0.37 H 0.26 H Absolute Neuts (auto) 8.8 H 14.3 H Absolute Nucleated RBC 0.0 0.0 Nucleated RBC % 0.0 0.0 Blood Type O Positive Antibody Screen Negative OB - PN A/P Assessment and Plan (1) S/P section: Code(s): Z98.891 - History of uterine scar from previous surgery Status: Acute Plan day: 1 Plan: routine care Time Spent With Patient Time: Total time spent is greater than 50% in coordination of care (as documented) at patient's floor/unit and/or counseling patient: Review of Systems Review of Systems: All systems reviewed & are unremarkable except as noted in HPI and below (HPI) Exam Const: General: cooperative, healthy appearing, comfortable and no acute distress Resp: Effort & Inspection: normal respiratory effort Auscultation: clear to auscultation bilaterally Cardio: Rate: regular rate GI: Inspection: non-distended and incision (covered with a clean dressing) GI Palp: Yes abdominal tenderness (appropriate) and Yes Soft to palpation Auscultation: normal bowel sounds : Other: fundus firm Skin: General skin exam: normal color Neuro: General: patient oriented x3 Extrem: General: normal to inspection Psych: Appearance: grossly normal Affect: normal affect Attitude: cooperative
[2021-07-05 19:45] VITALS: BP 109/71; PULSE 87; RESP 16; TEMP 36.9; O2SAT 99
[2021-07-06] MEDS: HYDROcodone/acetaminophen (*CRX) 5-325 MG TABLET 1 TAB PO ×3 (03:33→10:49)
[2021-07-06] MEDS: IBUPROFEN 600 MG TABLET PO ×2 (03:33→10:49)
[2021-07-06 07:35] VITALS: BP 123/82; PULSE 87; RESP 18; TEMP 36.8; O2SAT 100
[2021-07-06] MEDS: MULTIVIT/MIN/PREN/FOL AC/IRON TABLET 1 TAB PO (07:53)
[2021-07-06] MEDS: DOCUSATE SODIUM 100 MG CAPSULE PO (07:53)
[2021-07-06] MEDS: MEASLES,MUMPS,RUBELLA VACCINE 0.5 ML VIAL SUB-Q (07:54)
--- NOTE | 2021-07-06 08:05 | P.PNOB_ITS ---
OB - PN: Subj Subjective Date/time seen: 07/06/21 07:55 POD#2 Susi reports doing well today, she would like to go home. She states her pain is controlled. Her bleeding is light. She has tolerated regular diet, voided, passed gas, and ambulated. She is breast feeding. She would like her son circumcised. She denies fever, chills, N/V, MEANS, vision changes, CP, SOB, dizziness or palpitations. OB - PN: Obj Data Labs CBC & Chem 7: 07/05/21 03:15 Labs: Laboratory Results - last 24 hr 07/04/21 09:58 RPR Non-reactive OB - PN A/P Assessment and Plan (1) S/P section: Code(s): Z98.891 - History of uterine scar from previous surgery Status: Acute Plan day: 2 Plan: routine care and discharge home Comments: - Circumcision performed without issue - Incision care, pelvic rest, no heavy lifting discussed - ER return precautions: bleeding, fever, n/v/abd pain, HTN Time Spent With Patient Time: Total time spent is greater than 50% in coordination of care (as zion mayo) at patient's floor/unit and/or counseling patient: Review of Systems Review of Systems: All systems reviewed & are unremarkable except as noted in HPI and below (HPI) Exam 2 Const: General: cooperative, healthy appearing, comfortable and no acute distress Resp: Effort & Inspection: normal respiratory effort Auscultation: clear to auscultation bilaterally Cardio: Rate: regular rate GI: Inspection: normal to inspection, non-distended and incision (covered with clean dressing) GI Palp: No abdominal tenderness and Yes Soft to palpation Auscultation: normal bowel sounds : Other: fundus firm Skin: General skin exam: normal color Neuro: General: patient oriented x3 Extrem: General: normal to inspection Psych: Appearance: grossly normal Affect: normal affect Attitude: cooperative
--- NOTE | 2021-07-06 08:30 | PC.NURSE ---
Reviewed breast pump care and usage, pumping schedule, nipple care, and collection and storage of breast milk. Encouraged yayd-oz-ruul, breast massage and manual expression to stimulate supply. Assessed patient for correct flange size, placement and draw. Patient verbalizes and demonstrates understanding of instructions. Mother is pumping without difficulties or discomfort. Assisted mother with a pump for home use reviewing instructions. Discussed colostrum vs milk supply and mother may not see more than a few drops the first few days, milk should transition in by day 3 and she may see more volume pumped per session. Discussed increasing supplementation as infant requires to satisfactions. Reviewed paced feeding and suggested to stop when infant is satisfied, as long as is having required output. With increased supplementation may not want to feed for 4 hours. Mother will continue to pump on infant feeding schedule and will increase session to 20 minutes if pumping every 4 hours. Mother is feeding as required and waking to feed if needed. Infant is feeding without issue, and is currently meeting outcomes for weight, output, jaundice and feeding frequencies. Mother states she feels confident to continue current feeding plan at home. Reviewed transition to breast milk, signs of adequate intake, and engorgement/relief. Instructed to call ICP if intake/output less than required. Reviewed regular medications mother is taking. Information provided per Katerin. Reviewed community resources on the [facility] website and in the Mom/Baby guide. Information on outpatient services provided. Mother has no further questions at this time.
--- NOTE | 2021-07-06 08:32 | P.DS_ITS ---
DS: Admitting Diagnosis Discharge Date 07/06/21 Admitting Diagnosis decelerations previous section DS: Discharge Diagnosis Discharge Diagnosis (1) S/P section: Code(s): Z98.891 - History of uterine scar from previous surgery Status: Acute OB - DS: Summary OB Procedures : NST and Ultrasound OB Procedures Intrapartum: low cervical, transverse OB Procedures: : None Peripartum Data Delivery Method: Section Procedures: Procedures Operation Date: 07/04/21 11:00 Actual Procedure Side Surgeon p Section Not Applicable Yuliya Christy MD complications: none [place] 1: Gender: Male Disposition of : home Status at Discharge Functional status at discharge: independent ambulation Overall status at discharge: patient is back to baseline Time Spent with Patient Time attestation: Total time spent providing and/or coordinating discharge services: Time spent: Less than 30 minutes Exam Const: General: cooperative, healthy appearing, comfortable and no acute distress Resp: Effort & Inspection: normal respiratory effort Auscultation: clear to auscultation bilaterally Cardio: Rate: regular rate GI: Inspection: normal to inspection, non-distended and incision (covered with clean dressing) GI Palp: No abdominal tenderness and Yes Soft to palpation Auscultation: normal bowel sounds : Other: fundus firm Skin: General skin exam: normal color Neuro: General: patient oriented x3 Extrem: General: normal to inspection Psych: Appearance: grossly normal Affect: normal affect Attitude: cooperative DS: Data Data Completed and Pending Pending studies at discharge: Pending at discharge 07/04/21 11:48 Surgical [PTH] Routine Labs on day of discharge: Labs from last 24 hours 07/04/21 09:58 RPR Non-reactive Discharge Plan Discharge Attending physician on discharge: Yuliya Christy Discharging Clinician: Yuliya Christy Anticipated Discharge Date/Time: 07/06/21 11:00 Patient Disposition: Home, Self-Care Activity: pelvic rest Diet: regular Wound Care Instructions: incision open to air Discharge Instructions: No heavy lifting > 10lbs; remove dressing by 07/10/21 Patient Instructions: Antibiotic Form Stand Alone Forms: General Discharge Information Follow-up/Referrals: Yuliya Christy MD [Physician] - 2 Weeks Discharge Medications: New acetaminophen [Mapap (acetaminophen)] 325 mg Tablet 650 mg PO Q6H PRN (Reason: Mild Pain (1-3)) 10 Days Qty: 60 RF: 0 hydrocodone-acetaminophen 5-325 mg Tablet 1 tablet PO Q3H PRN (Reason: Moderate Pain (4-6)) 3 Days Qty: 24 RF: 0 docusate sodium 100 mg Capsule 100 mg PO BID 20 Days Qty: 40 RF: 0 ibuprofen 600 mg Tablet 600 mg PO Q6H PRN (Reason: Cramping) 10 Days Qty: 40 RF: 0 Continued Flintstones Gummies Tablet,Chewable 2 tablet PO DAILY RF: 0 ferrous sulfate 325 mg (65 mg iron) Tablet 162.5 mg PO DAILY RF: 0 Date of admission: 07/04/21 08:34 Primary Care Provider: PHYSICIAN,AUTOMATIC DIE CUTTING MACHINE OPERATOR Admitting Provider: Yuliya Christy Attending physician on admission: Yuliya Christy
--- NOTE | 2021-07-06 10:59 | PC.NURSE ---
Patient viewed the discharge video Mother & Baby Care, The First Two Weeks . Patient was given the opportunity and encouraged to ask questions. Patient verbalized understanding of information shared and has been given the mother/baby guide for home reference.
[2021-07-09 10:21] VITALS: BP 121/67; PULSE 76; RESP 20; TEMP 37.3; O2SAT 98
== END 2021-07-06 12:00 | disposition home or self-care (01) | DRG 540 ==
LOC: ANHLDR 09:35 → ANHOB2 16:08
PROVIDERS: Admitting Provider Obstetrics & Gynecology; Visit Provider Obstetrics & Gynecology
DX: O34.219 Maternal care for unspecified type scar from previous cesarean delivery (principal); O76 Abnormality in fetal heart rate and rhythm complicating labor and delivery; Z3A.36 36 weeks gestation of pregnancy; Z37.0 Single live birth
CPT/HCPCS: 36415; 85025; 86592; 86850; 86900; 86901; 88307; 90710; A9270; J0131; J0690; J1200; J1885; J2274; J2405; J2590; J7120

== ENCOUNTER 2021-07-04 08:36 | Outpatient (RCR) | payer OTHER, SELFPAY ==
[2021-06-18 09:23] VITALS: BP 113/66; PULSE 109
[2021-06-21 09:09] VITALS: BP 92/62; PULSE 102
[2021-06-30 11:57] VITALS: BP 113/72; PULSE 91
[2021-06-30] MEDS: BETAMETHASONE SOD PHOS/ACETATE 30 MG/5 ML VIAL 12 MG IM (12:00)
[2021-07-02 09:03] VITALS: BP 108/69; PULSE 88
== END 2021-07-05 07:35 | disposition home or self-care (01) ==
LOC: ANHOBOP 08:36
PROVIDERS: Visit Provider Obstetrics & Gynecology
DX: O09.513 Supervision of elderly primigravida, third trimester (principal); O36.8330 Maternal care for abnormalities of the fetal heart rate or rhythm, third trimester, not applicable or unspecified; Z3A.34 34 weeks gestation of pregnancy; Z3A.35 35 weeks gestation of pregnancy; O41.03X0 Oligohydramnios, third trimester, not applicable or unspecified; O36.8130 Decreased fetal movements, third trimester, not applicable or unspecified; Z3A.36 36 weeks gestation of pregnancy
CPT/HCPCS: 59025; 96372; J0702

== ENCOUNTER 2021-09-12 12:03 | Outpatient (CLI) | payer OTHER, SELFPAY ==
[2021-09-12 12:46] LABS: Beta HCG Quantitative < 2.39 mIU/ML
== END 2021-09-12 12:04 | disposition home or self-care (01) ==
LOC: ANHLAB 12:05
PROVIDERS: Visit Provider Obstetrics & Gynecology
DX: N92.6 Irregular menstruation, unspecified (principal)
CPT/HCPCS: 36415; 84702

== ENCOUNTER 2024-05-19 18:13 | Emergency (ER) | payer OTHER, SELFPAY ==
--- NOTE | ~2024-05-19 | CT_ITS ---
History: 43-year-old woman with (?)allergic reaction presents with dizziness PROCEDURE: CT head without contrast. COMPARISON: None TECHNIQUE: Axial imaging of the head performed from the skull base to the vertex without IV contrast. Sagittal a nd coronal reformations obtained. DLP: 605 mGy-cm FINDINGS: The ventricles are normal in size, shape and position. There is no mass, mass effect or midline shift. There is no abnormal extra-axial fluid collection or intracranial hemorrhage. Visualized paranasal sinuses are clear. The mastoid air cells are well aerated. There acute displaced fractures within the overlying cranium. Impression: No acute intracranial hemorrhage or suspicious mass effect. Reviewed, dictated and finalized at location [facility] Impression: No acute intracranial hemorrhage or suspicious mass effect.
--- NOTE | 2024-05-19 18:21 | ECG_ITS ---
Test Date: 2024-05-19 18:27:37 Measurements Intervals [place] Rate: 76 P: 52 MI: 153 QRS: 58 QRSD: 92 T: 34 QT: 377 QTc: 425 Interpretive Statements SINUS RHYTHM BASELINE ARTIFACT- I, II, III, V1-V4 NORMAL ECG No previous ECG available for comparison Electronically Signed On 05-19-2024 18:37:04 [employer]APH[employer] ARTIST by Lencho Romero D.O.
[2024-05-19 18:22] VITALS: BP 123/99; PULSE 72; RESP 22; TEMP 36.7; O2SAT 100; O2SAT 99
[2024-05-19 18:31] LABS: Basophils Absolute Auto 0.1 K/mm3 (0.0-0.1); Basophils Percent Auto 0.8 % (0.2-1.2); Eosinophils Absolute Auto 0.3 K/mm3 (0-0.3); Eosinophils Percent Auto 3.3 % (0-4.4); Hematocrit 38.3 % (37.0-47.0); Hemoglobin 12.9 g/dL (12.0-15.0); Immature Granulocyte Absolute 0.03 K/mm3 (0.00-0.031); Immature Granulocyte Percent A 0.3 % (0-0.5); Lymphocytes Absolute Auto 5.33 K/mm3 (0.9-3.2); Lymphocytes Percent Auto 51.3 % (18.3-44.2); Mean Corpuscular HGB Conc 33.7 g/dl (32-36); Mean Corpuscular Hemoglobin 32.2 pg (26-34); Mean Corpuscular Volume 95.5 fl (80-100); Mean Platelet Volume 8.3 fl (7.4-10.4); Monocytes Absolute Auto 0.6 K/mm3 (0.1-0.6); Monocytes Percent Auto 5.6 % (2.6-8.5); Neutrophils Percent Auto 38.7 % (45.5-73.1); Platelet Count Result 413 k/mm3 (150-375); Red Blood Count 4.01 M/mm3 (4.2-5.4); White Blood Count 10.4 K/mm3 (4.5-10.0)
[2024-05-19 18:41] LABS: Alanine Aminotransferase 30 U/L (6-35); Albumin Level 4.2 g/dL (3.5-5.1); Alkaline Phosphatase 66 U/L (38-126); Anion Gap 9 mmol/L (4-12); Aspartate Amino Transferase 34 U/L (14-36); Bilirubin,Total 0.3 mg/dL (0.2-1.3); Blood Urea Nitrogen 13 mg/dL (7-17); Calcium 9.2 mg/dL (8.4-10.2); Carbon Dioxide 26 mmol/L (22-30); Chloride 104 mmol/L (98-107); Estimated CRCL calculation 102 ml/min; Estimated Glomerular Filt Rate > 60; Glucose 123 mg/dL (65-110); Lipase 163 U/L (23-300); Potassium 3.6 mmol/L (3.4-5.0); Sodium 139 mmol/L (137-145)
--- NOTE | 2024-05-19 18:54 | ED_ITS ---
HPI - Allergic Reaction General Chief complaint: Allergic Reaction Stated complaint: allergic reaction Time Seen by Provider: 05/19/24 18:14 Source: patient Mode of arrival: wheelchair Limitations: no limitations History of Present Illness HPI narrative: This is a 43-year-old female that presents to the emergency department for dizziness. Reports today around noon she took a dose of ivermectin that is meant for animals. 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 Reports about 30 minutes later she started to feel very dizzy / lightheaded. Her family member reports she was very off balance. Currently she feels drowsy and as if she is slurring her speech. Was wondering if this is an adverse reaction to the medication. Denies focal numbness or weakness. Related Data Allergies Allergy/AdvReac Type Severity Reaction Status Date / Time No Known Allergies Allergy Verified 12/25/21 09:46 Review of Systems Review of Systems: CONSTITUTIONAL: Denies fever GASTROINTESTINAL: Denies vomiting NEUROLOGIC: Reports generalized weakness. Denies numbness All systems reviewed & are unremarkable except as noted in HPI and below PMFSH Past Medical History Medical History (Updated 05/19/24 @ 21:06 by Iraida Joseph PA-C) No active medical problems Surgical History Surgical History H/O section H/O gynecological procedure mirena iud insertion 09/13/2021 Status post repeat low transverse section Family History Family History Father Heart attack Throat cancer Lung cancer Social History Social History Years smoked: 21 Smoking status: Former smoker Additional smoking assessment comments: Pt smokes socially with drinking Substance use: never Occupation/Education: other Gender identity (if verbalized by the patient): Female Sexual Orientation (if Verbalized by the Patient): Straight or Heterosexual Spiritual care concerns: No Exam Narrative: GENERAL: Well-appearing, well-nourished, and in no acute distress. HEAD: Normocephalic, atraumatic. EYES: PERRLA and EOMI. ENT: Nares clear, no rhinorrhea or epistaxis. Mucous membranes moist. Oropharynx without tonsillar hypertrophy exudate or other lesions. Bilateral TMs pearly sharma non-bulging NECK: Supple. No adenopathy or masses. CHEST: Clear to auscultation. No respiratory distress. No wheezes rales or rhonchi HEART: Regular rate and rhythm. No murmur heard. Normal peripheral pulses. ABDOMEN: Soft, nontender, nondistended, normal active bowel sounds. EXTREMITIES: Normal range of motion. No edema. SKIN: Warm, dry, no rash. NEURO: No focal deficits. Alert and oriented x3. CN II-XII grossly intact. Speech is slow and mildly slurred PSYCH: Normal mood and affect Course Course Emergency Course: Patient reports relief in her symptoms, reports feeling about back to baseline at this time. Speaking with clear speech. Reports she is ready for discharge Consultations Consultation #1: Poison control recommends observation of symptoms, monitoring for improvement. She is past the peak of the medication Date: 05/19/24 Vital Signs Vital signs: Vital Signs Temperature 98.1 F 05/19/24 18:22 Pulse Rate 72 05/19/24 18:22 Respiratory Rate 22 H 05/19/24 18:22 Blood Pressure 123/99 H 05/19/24 18:22 Pulse Oximetry 100 05/19/24 18:22 Oxygen Delivery Room Air 05/19/24 18:22 Temperature 98.1 F 05/19/24 18:22 Pulse Rate 72 05/19/24 18:22 Respiratory Rate 22 H 05/19/24 18:22 Blood Pressure 123/99 H 05/19/24 18:22 Pulse Oximetry 99 05/19/24 18:22 Oxygen Delivery Room Air 05/19/24 18:22 MDM - Allergic Reaction MDM Narrative Medical decision making narrative: Patient presents to the emergency department after taking a dose of better dairy ivermectin with adverse reaction to it. Reports shortly after she started to feel dizzy. Had worsening of symptoms with ataxia, slurred speech, weakness. Presented to the ER. She is neurologically intact. Her vitals are stable. CBC and metabolic panel without concerning findings. CT brain Without acute intracranial findings. Urine without evidence of infection. EKG shows normal sinus rhythm. Patient was monitored in the ER for several hours with near complete resolution of her symptoms. Reports she is ready for discharge. She was counseled to not take this medication again. Given warnings to return to the ER Differential Diagnosis Differential diagnosis: Likely allergic reaction and adverse reaction to drug Lab Data Attestation: I reviewed the patient's lab results. 05/19/24 18:26 05/19/24 18:26 Labs: Lab Results 05/19/24 05/19/24 05/19/24 Range/Units 18:26 19:10 19:12 WBC 10.4 H (4.5-10.0) K/mm3 RBC 4.01 L (4.2-5.4) M/mm3 Hgb 12.9 (12.0-15.0) g/dL Hct 38.3 (37.0-47.0) % MCV 95.5 (80-100) fl MCH 32.2 (26-34) pg MCHC 33.7 (32-36) g/dl RDW 13.0 (11.5-14.5) % Plt Count 413 H (150-375) k/mm3 MPV 8.3 (7.4-10.4) fl Immature Gran % (Auto) 0.3 (0-0.5) % Neut % (Auto) 38.7 L (45.5-73.1) % Lymph % (Auto) 51.3 H (18.3-44.2) % [place] % (Auto) 5.6 (2.6-8.5) % Eos % (Auto) 3.3 (0-4.4) % Baso % (Auto) 0.8 (0.2-1.2) % Lymph # (Auto) 5.33 H (0.9-3.2) K/mm3 [place] # (Auto) 0.6 (0.1-0.6) K/mm3 Eos # (Auto) 0.3 (0-0.3) K/mm3 Baso # (Auto) 0.1 (0.0-0.1) K/mm3 Abs Immat Gran (auto) 0.03 (0.00-0.031) K/mm3 Absolute Neuts (auto) 4.0 (1.3-6.7) K/mm3 Absolute Nucleated RBC 0.000 (0.0-0.012) K/mm3 Nucleated RBC % 0.0 (0.0-0.2) % Sodium 139 (137-145) mmol/L Potassium 3.6 (3.4-5.0) mmol/L Chloride 104 (98-107) mmol/L Carbon Dioxide 26 (22-30) mmol/L Anion Gap 9 (4-12) mmol/L BUN 13 D (7-17) mg/dL Creatinine 0.60 L (0.7-1.0) mg/dL Estim Creat Clear Calc 102 ml/min Estimated GFR > 60 (59 - ) Glucose 123 H (65-110) mg/dL Calcium 9.2 (8.4-10.2) mg/dL Total Bilirubin 0.3 (0.2-1.3) mg/dL AST 34 (14-36) U/L ALT 30 (6-35) U/L Alkaline Phosphatase 66 (38-126) U/L Troponin I < 0.012 (0.000-0.034) ng/mL Total Protein 8.0 (6.3-8.2) g/dL Albumin 4.2 (3.5-5.1) g/dL Lipase 163 (23-300) U/L Urine Color Yellow (Yellow) Urine Appearance Clear (Clear) Urine pH 6.5 (5.0-9.0) Ur Specific [place] 1.008 (1.001-1.035) Urine Protein Negative (Negative) mg/dL Urine Glucose (UA) Negative (Negative) mg/dL Urine Ketones Negative (Negative) mg/dL Ur Blood (Man) Non-hemolyzed trace H (Negative) Urine Nitrate Negative (Negative) Urine Bilirubin Negative (Negative) Urine Urobilinogen 0.2 (<2.0) mg/dL Leukocyte Esterase Rfl Negative (Negative) LILY/UL Urine RBC 0-2 (0-2) /hpf Urine WBC 0-5 (0-3) /hpf Ur Squamous Epith Cells None seen (Few) /hpf Urine Bacteria None seen /hpf Urine Casts 0-2 POC Urine HCG, Qual Negative (Negative) Imaging Data Radiologist's impression: ITS Impressions Head CT 05/19/24 19:20 Impression: No acute intracranial hemorrhage or suspicious mass effect. ECG Data EKG #1: ECG completion date: 05/19/24 normal rate, sinus rhythm, no ST changes and normal QT Critical Care Time Critical Care Time Critical Care Time: No Discharge Plan Discharge Clinical Impression: Adverse effects of medication Qualifiers: Encounter type: initial encounter Qualified Code(s): T50.905A - Adverse effect of unspecified drugs, medicaments and biological substances, initial encounter Patient Disposition: Home, Self-Care Condition: Improved Additional Instructions: Return to the emergency department if you experience fever, chest pain, shortness of breath, abdominal pain with nausea and vomiting, weakness, numbness, or any other symptoms that are concerning to you. Follow up with primary care doctor Follow-up/Referrals: PHYSICIAN,CONTINUOUS IMPROVEMENT FACILITATOR [Primary Care Provider] - Gurpreet Vivsa MD [Physician] -
[2024-05-19] MEDS: SODIUM CHLORIDE 0.9% IV 1,000 ML 999 ML IV CONT (19:08)
[2024-05-19 19:19] LABS: BEDSIDEPREGUCG Negative (Negative)
[2024-05-19 19:20] LABS: Troponin I < 0.012 ng/mL (0.000-0.034)
[2024-05-19 19:41] LABS: Add Urine Microscopic? NO; Appearance Urine Clear (Clear); Bacteria Urine None Seen /hpf; Bilirubin Urine Negative (Negative); Blood Urine Non-Hemolyzed Trace (Negative); Color Urine Yellow (Yellow); Glucose Urine UA Negative (Negative); Ketones Urine Negative (Negative); Leukocyte Esterase Ur Negative LEU/UL (Negative); Nitrate Urine Negative (Negative); Non Pathogenic Casts 0-2; Protein Urine Negative (Negative); RBC Urine 0-2 /hpf (0-2); Specific Grav Ur 1.008 (1.001-1.035); Squamous Epithelial Cell Urine None Seen /hpf (Few); Urobilinogen Urine 0.2 mg/dL (<2.0); WBC Urine 0-5 /hpf (0-3); pH Urine 6.5 (5.0-9.0)
[2024-05-19 20:15] VITALS: BP 112/70; PULSE 73; RESP 21; O2SAT 98
--- NOTE | 2024-05-19 20:15 | PC.NURSE ---
called poison control @2005. they recommend supportive care and monitoring the patient. states they suspect pt symptoms are due to taking large amount of medication.
[2024-05-19 21:58] VITALS: BP 105/74; PULSE 82; RESP 22; TEMP 36.8; O2SAT 99
== END 2024-05-19 21:58 | disposition home or self-care (01) ==
PROVIDERS: Emergency Provider Physician Assistant
DX: R42 Dizziness and giddiness (principal); T37.4X5A Adverse effect of anthelminthics, initial encounter; Z87.891 Personal history of nicotine dependence
CPT/HCPCS: 36415; 70450; 80053; 81003; 81025; 83690; 84484; 85025; 93005; 96360; 99284; J7030